=== PATIENT | female | born 1965 | race African-American/Black ===

== ENCOUNTER 2020-07-21 20:21 | Emergency (ER) | payer MEDICAID ==
[~2020-07-21] VITALS: Ht 167.6 cm; Wt 85.0 kg
[~2020-07-21 20:21] MED LIST: ASPIRIN
[2020-07-21 22:23] VITALS: BP 129/65
== END 2020-07-21 22:25 | disposition home or self-care (01) ==
LOC: ER 20:21
DX: S20.212A Contusion of left front wall of thorax, initial encounter (principal); E78.00 Pure hypercholesterolemia, unspecified; X58.XXXA Exposure to other specified factors, initial encounter; Y93.9 Activity, unspecified; Y92.9 Unspecified place or not applicable
CPT/HCPCS: 71101; 93005; 99283

== ENCOUNTER 2020-07-23 17:56 | Emergency (ER) | payer MEDICAID, OTHER ==
[~2020-07-23] VITALS: Ht 167.6 cm; Wt 86.0 kg
[2020-07-23 21:52] VITALS: BP 115/80
== END 2020-07-23 21:54 | disposition home or self-care (01) ==
LOC: ER 17:56
DX: S00.01XA Abrasion of scalp, initial encounter (principal); R55 Syncope and collapse; E78.00 Pure hypercholesterolemia, unspecified; D25.9 Leiomyoma of uterus, unspecified; W01.0XXA Fall on same level from slipping, tripping and stumbling without subsequent striking against object, initial encounter; Y93.89 Activity, other specified; Y92.018 Other place in single-family (private) house as the place of occurrence of the external cause
CPT/HCPCS: 99281

== ENCOUNTER 2021-02-18 18:32 | Emergency (ER) | payer MEDICAID, OTHER ==
[~2021-02-18] VITALS: Ht 167.6 cm; Wt 87.0 kg
[2021-02-18] MEDS ORDERED: KETOROLAC 30MG/ML VIAL IV STA (21:26)
[2021-02-18] MEDS ORDERED: SODIUM CHLORIDE 0.9% 1,000 ML IV ONE (21:30)
[2021-02-18] MEDS ORDERED: KETOROLAC 60MG/2ML VIAL IM ONE (22:00)
[2021-02-18 22:40] LABS: CLARITY URINE CLEAR (CLEAR); COLOR URINE YELLOW (YELLOW); KETONES URINE NEGATIVE (NEGATIVE); LEUKOCYTE ESTERASE URINE NEGATIVE (NEGATIVE); NITRITE URINE NEGATIVE (NEGATIVE); OCCULT BLOOD URINE NEGATIVE (NEGATIVE); PROTEIN URINE NEGATIVE (NEGATIVE); SPECIFIC GRAVITY URINE 1.009 (1.005-1.030); UROBILINOGEN URINE 0.2 E.U./dL (0.2-1.0)
[2021-02-18 23:30] LABS: BASOPHILS % 0.9 % (0.0-2.0); EOSINOPHILS % 8.1 % (0.0-5.0); HEMATOCRIT. 33.7 % (36.0-48.0); HEMOGLOBIN. 11.1 g/dL (12.0-16.0); LYMPHOCYTES % 31.2 % (20.0-50.0); MEAN CORPUSCULAR HEMOGLOBIN 32.7 pg (28.0-32.0); MEAN CORPUSCULAR VOLUME 98.9 fL (81.0-99.0); MEAN PLATELET VOLUME 8.9 fl (7.4-10.4); NEUTROPHILS % 52.8 % (40.0-76.0); PLATELET 204 x1000/uL (130-400); RED CELL DISTRIBUTION WIDTH 13.2 % (11.6-14.6)
[2021-02-18 23:33] LABS: CHLORIDE 114 mEq/L (98-107)
[2021-02-19] MEDS ORDERED: IOHEXOL-300 100 ML BOTTLE ONE (00:43)
[2021-02-19 04:44] VITALS: BP 110/68
== END 2021-02-19 04:44 | disposition home or self-care (01) ==
LOC: ER 18:32
DX: R10.9 Unspecified abdominal pain (principal); E78.00 Pure hypercholesterolemia, unspecified; Z98.890 Other specified postprocedural states; Z86.73 Personal history of transient ischemic attack (TIA), and cerebral infarction without residual deficits
CPT/HCPCS: 36415; 74177; 80053; 81003; 85025; 96360; 96372; 99285; J1885; J7030; Q9967

== ENCOUNTER 2022-02-16 07:10 | Emergency (ER) | payer MEDICAID, OTHER ==
[~2022-02-16] VITALS: Ht 167.6 cm; Wt 83.0 kg
[2022-02-16 07:42] VITALS: BP 121/84
[2022-02-16 10:45] LABS: BASOPHILS % 0.8 % (0.0-2.0); EOSINOPHILS % 4.5 % (0.0-5.0); HEMATOCRIT. 38.2 % (36.0-48.0); HEMOGLOBIN. 12.7 g/dL (12.0-16.0); LYMPHOCYTES % 29.7 % (20.0-50.0); MEAN CORPUSCULAR HEMOGLOBIN 32.5 pg (28.0-32.0); MEAN CORPUSCULAR VOLUME 97.6 fL (81.0-99.0); MEAN PLATELET VOLUME 8.7 fl (7.4-10.4); MONOCYTES % 4.8 % (2.0-8.0); NEUTROPHILS % 60.2 % (40.0-76.0); PLATELET 238 x1000/uL (130-400); RED BLOOD CELL COUNT 3.91 mill/uL (4.2-5.4); RED CELL DISTRIBUTION WIDTH 12.9 % (11.6-14.6)
[2022-02-16] MEDS ORDERED: AMOX-494 MT (12:38)
[2022-02-16] MEDS ORDERED: BENZ100C86 MT (12:38)
== END 2022-02-16 12:47 | disposition home or self-care (01) ==
LOC: ER 07:10
DX: J18.9 Pneumonia, unspecified organism (principal); E78.00 Pure hypercholesterolemia, unspecified; Z98.890 Other specified postprocedural states; Z20.822 Contact with and (suspected) exposure to COVID-19
CPT/HCPCS: 36415; 71045; 85025; 87426; 99284

== ENCOUNTER 2022-08-20 10:40 | Emergency (ER) | payer MEDICAID ==
[~2022-08-20] VITALS: Ht 170.2 cm; Wt 77.2 kg
[~2022-08-20 10:40] MED LIST changes: +AMOX-494 MT; +BENZ100C86 MT
[2022-08-20 11:02] VITALS: TEMP 98.4; O2SAT 97
[2022-08-20 11:41] LABS: EOSINOPHILS % 7.3 % (0.0-5.0); HEMOGLOBIN. 12.1 g/dL (12.0-16.0); LYMPHOCYTES % 27.5 % (20.0-50.0); MEAN CORPUSCULAR HEMOGLOBIN 32.6 pg (28.0-32.0); MEAN CORPUSCULAR VOLUME 97.2 fL (81.0-99.0); MEAN PLATELET VOLUME 8.7 fl (7.4-10.4); MONOCYTES % 5.3 % (2.0-8.0); NEUTROPHILS % 58.9 % (40.0-76.0); PLATELET 232 x1000/uL (130-400); RED BLOOD CELL COUNT 3.71 mill/uL (4.2-5.4); RED CELL DISTRIBUTION WIDTH 12.9 % (11.6-14.6)
[2022-08-20 11:49] LABS: CHLORIDE 115 mEq/L (98-107)
[2022-08-20] MEDS ORDERED: METH-653 MT (13:41)
[2022-08-20 13:53] VITALS: BP 124/82; PULSE 82; RESP 14
== END 2022-08-20 13:55 | disposition home or self-care (01) ==
LOC: ER 10:47
DX: M25.511 Pain in right shoulder (principal); I49.9 Cardiac arrhythmia, unspecified; E78.00 Pure hypercholesterolemia, unspecified; Z98.890 Other specified postprocedural states
CPT/HCPCS: 36415; 71045; 80053; 84484; 85025; 93005; 93971; 99285

== ENCOUNTER 2023-02-09 14:07 | Emergency (ER) | payer MEDICAID ==
[~2023-02-09] VITALS: Ht 167.6 cm; Wt 68.0 kg
[~2023-02-09 14:07] MED LIST changes: +METH-653 MT
[2023-02-09 14:24] VITALS: BP 122/65; PULSE 83; RESP 20; TEMP 98.5; O2SAT 99
[2023-02-09] MEDS ORDERED: METH-653 MT (16:11)
[2023-02-09] MEDS ORDERED: IBUP-2029 MT (16:11)
== END 2023-02-09 16:53 | disposition home or self-care (01) ==
LOC: ER 14:07
DX: M54.2 Cervicalgia (principal); E78.00 Pure hypercholesterolemia, unspecified; Z98.890 Other specified postprocedural states; I82.409 Acute embolism and thrombosis of unspecified deep veins of unspecified lower extremity; V98.8XXA Other specified transport accidents, initial encounter; Y93.89 Activity, other specified; Y92.89 Other specified places as the place of occurrence of the external cause; Y99.8 Other external cause status
CPT/HCPCS: 72040; 72070; 99284

== ENCOUNTER 2023-10-28 21:03 | Emergency (ER) | payer MEDICAID ==
[~2023-10-28] VITALS: Ht 167.6 cm; Wt 88.0 kg
[~2023-10-28 21:03] MED LIST changes: +IBUP-2029 MT
[2023-10-28 21:41] VITALS: TEMP 98.3; O2SAT 98
[2023-10-29] MEDS ORDERED: KETOROLAC 15MG/ML VIAL IM ONE
[2023-10-29 00:27] VITALS: BP 121/63; PULSE 80; RESP 16
[2023-10-29] MEDS: IBUPROFEN 600MG TABLET PO ONE (00:27)
== END 2023-10-29 01:46 | disposition home or self-care (01) ==
LOC: ER 21:03
DX: S80.02XA Contusion of left knee, initial encounter (principal); E78.00 Pure hypercholesterolemia, unspecified; Z98.890 Other specified postprocedural states; X58.XXXA Exposure to other specified factors, initial encounter; Y93.89 Activity, other specified; Y92.89 Other specified places as the place of occurrence of the external cause; Y99.8 Other external cause status
CPT/HCPCS: 73562; 99283; Z7610; L1830; 29505

== ENCOUNTER → 2023-11-03 | Outpatient (CLI) | payer MEDICAID | END | disposition home or self-care (01) | LOC: RAD 17:26 | PROVIDERS: ATTEND Family Medicine | DX: M79.605 Pain in left leg (principal) | CPT/HCPCS: 93971 ==

== ENCOUNTER 2023-11-09 19:05 | Emergency (ER) | payer MEDICAID ==
[~2023-11-09] VITALS: Ht 167.6 cm; Wt 92.0 kg
[2023-11-09 19:41] VITALS: BP 126/71; PULSE 82; RESP 20; TEMP 98.3; O2SAT 100
[2023-11-09] MEDS ORDERED: CLOT113C TP (19:55)
== END 2023-11-09 20:21 | disposition home or self-care (01) ==
LOC: ER 19:05
DX: M25.562 Pain in left knee (principal); B35.4 Tinea corporis; E78.00 Pure hypercholesterolemia, unspecified; Z98.890 Other specified postprocedural states; Z79.899 Other long term (current) drug therapy
CPT/HCPCS: 99282

== ENCOUNTER 2024-06-23 16:30 | Emergency (ER) | payer MEDICAID ==
[~2024-06-23] VITALS: Ht 167.6 cm; Wt 100.0 kg
[~2024-06-23 16:30] MED LIST changes: +CLOT113C TP
[2024-06-23 16:40] VITALS: BP 182/77; PULSE 100; RESP 18; TEMP 36.9; O2SAT 97; O2SAT 99
== END 2024-06-23 19:03 | disposition home or self-care (01) ==
LOC: ER 16:30
DX: I82.401 Acute embolism and thrombosis of unspecified deep veins of right lower extremity (principal); Z79.899 Other long term (current) drug therapy; Z98.890 Other specified postprocedural states
CPT/HCPCS: 93971; 99284